=== PATIENT | female | born 1955 | race Native Hawaiian/Other Pacific Islander ===

== ENCOUNTER 2017-01-31 21:47 | Emergency (ER) | payer BC, OTHER ==
[~2017-01-31] VITALS: Ht 157.5 cm; Wt 70.3 kg
[2017-01-31] MEDS ORDERED: ATORVASTATIN 10 MG TABLET (22:50)
[2017-01-31] MEDS ORDERED: METO25TA3 (22:50)
[2017-01-31] MEDS ORDERED: MAG HYDROX/AL HYDROX/SIMETH 30 ML LIQUID UDC PO ONE (23:00)
[2017-01-31] MEDS ORDERED: PANTOPRAZOLE SODIUM 40 MG TABLET.DR PO ONE ×2 (23:00→23:07)
[2017-01-31] MEDS ORDERED: DICYCLOMINE HCL 10 MG/5 ML UDC LIQ PO ONE (23:00)
--- NOTE | 2017-01-31 23:00 | NUR ---
Patient walked into ER C/O burning/pain on abdominal area. Patient states pain started at 1900 today. Ptaient took mylanta and zantac but not effective
[2017-01-31] MEDS ORDERED: MAG HYDROX/AL HYDROX/SIMETH 30 ML LIQUID UDC ONE (23:07)
[2017-01-31] MEDS ORDERED: DICYCLOMINE HCL 10 MG/5 ML UDC LIQ ONE (23:07)
--- NOTE | 2017-01-31 23:20 | NUR ---
Dr Hoskins into re eval patient. Patient states "I feel alot better now."
--- NOTE | 2017-01-31 23:30 | NUR ---
Patient discharged to home in stable conditon with family taking patient home. Written and verbal after care instructions given. Patient verbalizes understanding of instructions. Walked out of ER with steady gait. no distress noted
[2017-01-31 23:31] VITALS: BP 150/100
== END 2017-01-31 23:31 | disposition home or self-care (01) ==
LOC: ER 21:47
DX: K21.0 Gastro-esophageal reflux disease with esophagitis (principal); G43.901 Migraine, unspecified, not intractable, with status migrainosus
CPT/HCPCS: A4663

== ENCOUNTER 2017-05-20 10:50 | Outpatient (CLI) | payer BC, OTHER ==
[~2017-05-20 10:50] MED LIST: ATORVASTATIN 10 MG TABLET; METO25TA3
[2017-05-20 11:47] LABS: BASOPHILS % (AUTO) 0.6 % (0.0-2.0); EOSINOPHILS # (AUTO) 0.1 K/uL (0.0-0.7); EOSINOPHILS % (AUTO) 1.5 % (0.0-7.0); HEMATOCRIT 40.1 % (37-47); HEMOGLOBIN 13.2 G/DL (12.0-16.0); LYMPHOCYTES # (AUTO) 2.3 K/UL (0.8-4.8); LYMPHOCYTES % (AUTO) 30.9 % (20.5-51.5); MEAN CORPUSCULAR HEMOGLOBIN 29.9 UUG (27.0-31.0); MEAN CORPUSCULAR HGB CONC 33 g/dL (32.0-37.0); MEAN CORPUSCULAR VOLUME 91.2 FL (81.0-99.0); MONOCYTES # (AUTO) 0.4 K/UL (0.1-1.30); MONOCYTES % (AUTO) 4.9 % (0.0-11.0); NEUTROPHILS # (AUTO) 4.8 K/UL (1.8-8.9); NEUTROPHILS % (AUTO) 62.1 % (38.5-71.5); PLATELET COUNT (AUTO) 322 K/UL (150-450); WHITE BLOOD COUNT (AUTO) 7.6 K/UL (4.0-11.2)
[2017-05-20 12:19] LABS: BILIRUBIN,TOTAL 0.7 mg/dL (0.2-1.0); CREATININE 0.6 mg/dL (0.6-1.3); POTASSIUM 3.8 mmol/L (3.5-5.1); TOTAL PROTEIN, SERUM 8.5 g/dL (6.4-8.2)
== END 2017-05-20 23:59 | disposition home or self-care (01) ==
LOC: LAB 10:50
PROVIDERS: ATTEND Internal Medicine Cardiovascular Disease
DX: I10 Essential (primary) hypertension (principal); E11.9 Type 2 diabetes mellitus without complications; R53.83 Other fatigue; E78.5 Hyperlipidemia, unspecified
CPT/HCPCS: 36415; 85025

== ENCOUNTER 2018-01-28 10:02 | Outpatient (CLI) | payer BC, OTHER ==
[2018-01-28 11:04] LABS: BILIRUBIN,TOTAL 0.4 mg/dL (0.2-1.0); CREATININE 0.7 mg/dL (0.6-1.3); POTASSIUM 3.8 mmol/L (3.5-5.1); TOTAL PROTEIN, SERUM 8.3 g/dL (6.4-8.2)
== END 2018-01-28 23:59 | disposition home or self-care (01) ==
LOC: LAB 10:02
PROVIDERS: ATTEND Internal Medicine Cardiovascular Disease
DX: I10 Essential (primary) hypertension (principal); E11.9 Type 2 diabetes mellitus without complications; E78.5 Hyperlipidemia, unspecified
CPT/HCPCS: 36415

== ENCOUNTER 2018-09-18 08:53 | Outpatient (CLI) | END 2018-09-18 23:59 | disposition home or self-care (01) | DX: E78.5 Hyperlipidemia, unspecified (principal); E11.9 Type 2 diabetes mellitus without complications; I10 Essential (primary) hypertension ==

== ENCOUNTER 2018-12-15 16:36 | Emergency (ER) | payer BC, OTHER ==
[~2018-12-15] VITALS: Ht 157.5 cm; Wt 70.3 kg
--- NOTE | 2018-12-15 16:51 | NUR ---
DR Foreman seen and examined the pt.
--- NOTE | 2018-12-15 17:51 | NUR ---
Patient discharged to home in stable conditon. Written and verbal after care instructions given. Patient verbalizes understanding of instructions.
[2018-12-15 17:52] VITALS: BP 165/84
== END 2018-12-15 17:52 | disposition home or self-care (01) ==
LOC: ER 16:39
DX: S93.401A Sprain of unspecified ligament of right ankle, initial encounter (principal); Z79.899 Other long term (current) drug therapy; X50.0XXA Overexertion from strenuous movement or load, initial encounter; Y93.89 Activity, other specified; Y92.89 Other specified places as the place of occurrence of the external cause; Y99.8 Other external cause status
CPT/HCPCS: 73610; A4663

== ENCOUNTER 2019-04-14 07:45 | Outpatient (CLI) | payer BC, OTHER ==
[2019-04-14 08:58] LABS: BILIRUBIN,TOTAL 0.4 mg/dL (0.2-1.0); CREATININE 0.7 mg/dL (0.6-1.3); POTASSIUM 3.8 mmol/L (3.5-5.1); TOTAL PROTEIN, SERUM 8.1 g/dL (6.4-8.2)
[2019-04-14 09:03] LABS: THYROID STIMULATING HORMONE 2.876 mIU/mL (0.358-3.740)
== END 2019-04-14 23:59 | disposition home or self-care (01) ==
LOC: LAB 07:45
PROVIDERS: ATTEND Internal Medicine Cardiovascular Disease
DX: E11.9 Type 2 diabetes mellitus without complications (principal); I10 Essential (primary) hypertension; E78.5 Hyperlipidemia, unspecified; R53.83 Other fatigue
CPT/HCPCS: 36415; 84443

== ENCOUNTER 2019-11-24 10:04 | Outpatient (CLI) | payer BC, OTHER ==
[2019-11-24 10:39] LABS: BASOPHILS % (AUTO) 0.6 % (0.0-2.0); EOSINOPHILS % (AUTO) 0.5 % (0.0-7.0); HEMATOCRIT 40.1 % (31.2-41.9); HEMOGLOBIN 13.3 g/dL (10.9-14.3); LYMPHOCYTES # (AUTO) 1.8 K/uL (20.0-40.0); LYMPHOCYTES % (AUTO) 23.4 % (20.5-51.5); MEAN CORPUSCULAR HEMOGLOBIN 30.6 uug (24.7-32.8); MEAN CORPUSCULAR HGB CONC 33 g/dL (32.3-35.6); MONOCYTES # (AUTO) 0.3 K/uL (2.0-10.0); MONOCYTES % (AUTO) 4.4 % (0.0-11.0); NEUTROPHILS # (AUTO) 5.4 K/uL (1.8-8.9); NEUTROPHILS % (AUTO) 71.1 % (38.5-71.5); PLATELET COUNT (AUTO) 327 K/uL (179-408); RED BLOOD CELL COUNT(AUTO) 4.35 MIL/uL (3.63-4.92); WHITE BLOOD COUNT (AUTO) 7.7 K/uL (3.8-11.8)
[2019-11-24 11:04] LABS: BILIRUBIN,TOTAL 0.4 mg/dL (0.2-1.0); CREATININE 0.7 mg/dL (0.6-1.3); POTASSIUM 3.3 mmol/L (3.5-5.1); THYROID STIMULATING HORMONE 1.681 mIU/mL (0.358-3.740); TOTAL PROTEIN, SERUM 8.7 g/dL (6.4-8.2)
[2019-11-24 11:30] LABS: *BILIRUBIN,URIN NEGATIVE (NEGATIVE); *BLOOD, URINE NEGATIVE (NEGATIVE); *CLARITY,URINE CLEAR (CLEAR); *COLOR,URINE YELLOW (YELLOW); *KETONES,URINE NEGATIVE (NEGATIVE); *UROBILINOGEN,URINE 0.2 E.U./dl (NORMAL); LEUKOCYTE ESTERASE ,URINE 2+ (NEGATIVE); NITRITE, URINE NEGATIVE (NEGATIVE); PH,URINE 6.5 (5.0-8.0); UGLUCOSE NEGATIVE (NEGATIVE)
[2019-11-24 11:44] LABS: URIC ACID 6.6 mg/dL (2.6-6.0)
[2019-11-24 12:02] LABS: BACTERIA,URINE FEW /HPF (NONE SEEN); RBC,URINE 0-3 /HPF (0-3); SQUAMOUS EPITHELIAL CELL,UR FEW /HPF (NONE SEEN); WBC,URINE 0-3 /HPF (0-3)
== END 2019-11-24 23:59 | disposition home or self-care (01) ==
LOC: LAB 10:04
PROVIDERS: ATTEND Legal Medicine
DX: Z00.00 Encounter for general adult medical examination without abnormal findings (principal); I10 Essential (primary) hypertension; E11.9 Type 2 diabetes mellitus without complications; E78.00 Pure hypercholesterolemia, unspecified; E03.9 Hypothyroidism, unspecified; E55.9 Vitamin D deficiency, unspecified
CPT/HCPCS: 36415; 82306; 83550; 84443; 84550; 85025; 87086

== ENCOUNTER 2020-07-17 10:23 | Outpatient (CLI) | payer BC, OTHER ==
[2020-07-17 10:51] LABS: BASOPHILS % (AUTO) 0.7 % (0.0-2.0); EOSINOPHILS # (AUTO) 0.1 K/uL (0.0-0.7); EOSINOPHILS % (AUTO) 0.8 % (0.0-7.0); HEMATOCRIT 37.8 % (31.2-41.9); HEMOGLOBIN 12.9 g/dL (10.9-14.3); LYMPHOCYTES # (AUTO) 2.3 K/uL (20.0-40.0); LYMPHOCYTES % (AUTO) 31.8 % (20.5-51.5); MEAN CORPUSCULAR HEMOGLOBIN 31.2 uug (24.7-32.8); MEAN CORPUSCULAR HGB CONC 34 g/dL (32.3-35.6); MEAN CORPUSCULAR VOLUME 91.7 fL (75.5-95.3); MONOCYTES # (AUTO) 0.4 K/uL (2.0-10.0); MONOCYTES % (AUTO) 5.5 % (0.0-11.0); NEUTROPHILS # (AUTO) 4.4 K/uL (1.8-8.9); NEUTROPHILS % (AUTO) 61.2 % (38.5-71.5); PLATELET COUNT (AUTO) 311 K/uL (179-408); RED BLOOD CELL COUNT(AUTO) 4.12 MIL/uL (3.63-4.92); WHITE BLOOD COUNT (AUTO) 7.1 K/uL (3.8-11.8)
[2020-07-17 11:03] LABS: BILIRUBIN,TOTAL 0.2 mg/dL (0.2-1.0); CREATININE 0.8 mg/dL (0.6-1.3); POTASSIUM 3.6 mmol/L (3.5-5.1); TOTAL PROTEIN, SERUM 8.3 g/dL (6.4-8.2)
[2020-07-17 14:42] LABS: *BILIRUBIN,URIN NEGATIVE (NEGATIVE); *BLOOD, URINE NEGATIVE (NEGATIVE); *CLARITY,URINE CLEAR (CLEAR); *COLOR,URINE YELLOW (YELLOW); *KETONES,URINE NEGATIVE (NEGATIVE); *UROBILINOGEN,URINE 0.2 E.U./dl (NORMAL); LEUKOCYTE ESTERASE ,URINE 1+ (NEGATIVE); NITRITE, URINE NEGATIVE (NEGATIVE); UGLUCOSE NEGATIVE (NEGATIVE)
[2020-07-17 18:44] LABS: BACTERIA,URINE FEW /HPF (NONE SEEN); RBC,URINE 0-3 /HPF (0-3); SQUAMOUS EPITHELIAL CELL,UR FEW /HPF (NONE SEEN)
== END 2020-07-17 23:59 | disposition home or self-care (01) ==
LOC: LAB 10:23
PROVIDERS: ATTEND Legal Medicine
DX: Z01.818 Encounter for other preprocedural examination (principal); E04.1 Nontoxic single thyroid nodule; I10 Essential (primary) hypertension; E78.00 Pure hypercholesterolemia, unspecified; E55.9 Vitamin D deficiency, unspecified; D68.59 Other primary thrombophilia
CPT/HCPCS: 36415; 71046; 85025; 85610; 85730; 87086

== ENCOUNTER 2020-07-22 06:33 | Outpatient (CLI) | payer BC, OTHER | END 2020-07-22 23:59 | disposition home or self-care (01) | LOC: LAB 06:33 | PROVIDERS: ATTEND Otolaryngology | DX: Z01.812 Encounter for preprocedural laboratory examination (principal); Z20.828 Contact with and (suspected) exposure to other viral communicable diseases ==

== ENCOUNTER 2020-07-24 09:10 | Inpatient (IN) | payer BC, OTHER ==
[2020-07-24] MEDS ORDERED: LIDOCAINE 1%-EPI 1:100,000 20 ML VIAL ONE (09:28)
[2020-07-24] MEDS ORDERED: HYDROMORPHONE 2 MG/1 ML DISP.SYRIN ONE (10:33)
[2020-07-24] MEDS ORDERED: ROCURONIUM BROMIDE 50 MG/5 ML VIAL ONE (10:33)
[2020-07-24] MEDS ORDERED: DEXAMETHASONE SOD PHOSPHATE 4 MG INJ IV ONE (12:38)
[2020-07-24] MEDS ORDERED: PROPOFOL 200 MG/20 ML BOTTLE IV ONE (12:38)
[2020-07-24] MEDS ORDERED: IV LACTATED RINGERS SOLUTION 1,000 ML BAG IV ONE (12:38)
[2020-07-24] MEDS ORDERED: METOCLOPRAMIDE HCL 10 MG/2 ML VIAL IV ONE (12:38)
[2020-07-24] MEDS ORDERED: LIDOCAINE-MPF 2% 5 ML VIAL IJ ONE (12:38)
[2020-07-24] MEDS ORDERED: NEOSTIGMINE METHYLSULFATE 10 MG/10 ML VIAL IM ONE (12:38)
[2020-07-24] MEDS ORDERED: hydrALAZINE HCL 20 MG/1 ML VIAL IM ONE (12:38)
[2020-07-24] MEDS ORDERED: CEFAZOLIN 1 G VIAL IM ONE (12:38)
[2020-07-24] MEDS ORDERED: ONDANSETRON 4 MG/2 ML VIAL IV ONE (12:38)
[2020-07-24] MEDS ORDERED: GLYCOPYRROLATE 0.2 MG/ML VIAL IJ ONE (12:38)
[2020-07-24] MEDS ORDERED: SEVOFLURANE 250 ML BOTTLE IH ONE (12:38)
[2020-07-24] MEDS ORDERED: ONDANSETRON 4 MG/2 ML VIAL ONE (13:28)
[2020-07-24] MEDS ORDERED: hydrALAZINE HCL 20 MG/1 ML VIAL ONE (13:28)
[2020-07-24] MEDS ORDERED: FENTANYL CITRATE 100 MCG/2 ML AMPUL ONE (13:34)
[2020-07-24] MEDS ORDERED: HYDROCODONE/APAP 5-325MG TABLET ONE (14:37)
[2020-07-24] MEDS ORDERED: MECLIZINE HCL 25 MG TABLET PO ONE (16:30)
[2020-07-24] MEDS ORDERED: DOCUSATE SODIUM 250 MG CAPSULE PO PRN (18:45)
[2020-07-24] MEDS ORDERED: ONDANSETRON 4 MG/2 ML VIAL IV PRN (18:45)
[2020-07-24] MEDS ORDERED: HYDROCODONE/APAP 5-325MG TABLET PO PRN (18:45)
[2020-07-24] MEDS ORDERED: MORPHINE SULFATE 2 MG/1 ML DISP.SYRIN IV PRN (18:45)
--- NOTE | 2020-07-24 19:00 | NUR ---
RECEIVED PT VIA GURNEY FROM PACU. PT IN NO ACUTE RESPIRATORY DISTRESS. PT AWAKE, ALERT AND ORIENTEDX4. PT FEEL DIZZY. SAFETY AND COMFORT PROVIDED. PT INCISIONAL DRESSING DRY AND INTACT. NO SWELLING ON PT NECK. ENDORSED BY KAREN NICOLE RN.ADMISSION PROCESS AND CARE PLAN INITIATED. SAFETY AND COMFORT PROVIDED. INCENTIVE SPIROMETER PROVIDE.WILL CONTINUE TO MONITOR .
--- NOTE | 2020-07-24 20:00 | NUR ---
Received patient alert, awake, and with VSS. Patient reports pain in her neck post op. Patient also reports Nausea and Vomiting. Patient was admitted to Med Surg in room 310. Will continue to monitor and assess Patient.
[2020-07-24 20:04] VITALS: BP 144/68
--- NOTE | 2020-07-24 20:09 | NUR ---
PT REFUSED ANTIVERT MEDICATION. PT REQUEST ZOFRAN INSTEAD SINCE ANTIVERT WAS GIVEN IN RECOVERY ROOM. PT FEEL DIZZY AND HAS HEADACHE. PT GIVEN ZOFRAN FIRST. NORCO WILL BE GIVEN AFTER THE ZOFRAN WORKS.
[2020-07-24] MEDS ORDERED: ATORVASTATIN 10 MG TABLET PO SCH (21:00)
--- NOTE | 2020-07-24 21:42 | NUR ---
Patient initially requested that Zofran be given first and if needed she will ask for Dupont. Both were given. Will continue to monitor and assess patient to achieve optimal care.
--- NOTE | 2020-07-25 02:28 | NUR ---
Dr.Dmitriy Sandoval ordered tylenol 650mg tablet . Pt doesn't want norco for pain.
[2020-07-25] MEDS: ACETAMINOPHEN 325 MG TABLET PO PRN ×2 (02:29→09:03)
--- NOTE | 2020-07-25 02:29 | NUR ---
TYLENOL 650 MG GIVEN TO THE PT FOR HEADACHE AND PAIN. PT TOLERATED IT WELL.
[2020-07-25 04:04] VITALS: BP 112/50
--- NOTE | 2020-07-25 06:26 | NUR ---
NORCO GIVEN AT 2123H FOR PAIN . PT TOLERATED IT WELL AFTER AN HOUR PT STATED SHE FELT BETTER. PT SLEPT INTERMITTENTLY. PT IN NO ACUTE RESPIRATORY DISTRESS. IV INTACT. DRESSING INTACT WITH A TINY BLOOD STAIN IN THE DRESSING. NO SWELLING ON PT NECK. SAFETY AND COMFORT PROVIDED. ALL NEEDS ARE MET. WILL ENDORSE TO INCOMING NURSE FOR CONTINUITY OF CARE.
[2020-07-25] MEDS ORDERED: METOPROLOL SUCCINATE XL 25 MG TAB.SR.24H PO SCH (09:00)
--- NOTE | 2020-07-25 10:20 | NUR ---
Pt received, resting in bed, states feeling better than before but still c/o headache. Tylenol administered per PRN orders. Pt compliant with routine medications. BP 161/76, 78. Pt seen by MD, new order received to assess orthostatic BP, will follow up accordingly. Plan of care discussed including potential D/C later today. All comfort and safety measures implemented. Call light placed within reach. Will continue to monitor and follow up.
[2020-07-25] MEDS ORDERED: ONDA4TAB5 PO (10:50)
[2020-07-25 11:00] VITALS: BP_SYST 128; BP_SYST 133; BP_DIAS 65; BP_DIAS 66
--- NOTE | 2020-07-25 17:21 | NUR ---
Discharge order received, paperwork completed, reviewed, and signed. Original paperwork given to Pt and copies placed in chart. Medications discussed with Pt and script provided. All discharge concerns addressed. ID band and IV removed. Belongings accounted for. Original surgical dressing remains intact as ordered. No wound photos to take. Pt assisted in wheelchair to private car with Son driving. Will remove Pt from system shortly.
== END 2020-07-25 17:15 | disposition home or self-care (01) | DRG 627 ==
LOC: DS 09:10 → MEDSURG3 19:02
PROVIDERS: ADMIT Registered Nurse; ATTEND Otolaryngology
PROC: 0GTH0ZZ Resection of Right Thyroid Gland Lobe, Open Approach (ICD-10-PCS; principal; 2020-07-24)
DX: E04.1 Nontoxic single thyroid nodule (principal); G89.18 Other acute postprocedural pain; E78.5 Hyperlipidemia, unspecified; I10 Essential (primary) hypertension
CPT/HCPCS: A4649; A4663; G0378; J0360; J0690; J1100; J1170; J2405; J2765; J3010; J3490; J7120; J8597

== ENCOUNTER 2020-08-29 09:05 | Outpatient (CLI) | payer BC, OTHER ==
[~2020-08-29 09:05] MED LIST changes: +ONDA4TAB5 PO
[2020-08-29 10:29] LABS: BASOPHILS # (AUTO) 0.1 K/uL (0.0-8.0); BASOPHILS % (AUTO) 0.8 % (0.0-2.0); EOSINOPHILS # (AUTO) 0.1 K/uL (0.0-0.7); EOSINOPHILS % (AUTO) 1.1 % (0.0-7.0); HEMATOCRIT 40.1 % (31.2-41.9); HEMOGLOBIN 13.3 g/dL (10.9-14.3); LYMPHOCYTES % (AUTO) 28.3 % (20.5-51.5); MEAN CORPUSCULAR HEMOGLOBIN 30.9 uug (24.7-32.8); MEAN CORPUSCULAR HGB CONC 33 g/dL (32.3-35.6); MEAN CORPUSCULAR VOLUME 93.1 fL (75.5-95.3); MONOCYTES # (AUTO) 0.5 K/uL (2.0-10.0); NEUTROPHILS # (AUTO) 6.8 K/uL (1.8-8.9); NEUTROPHILS % (AUTO) 64.8 % (38.5-71.5); PLATELET COUNT (AUTO) 317 K/uL (179-408); RED BLOOD CELL COUNT(AUTO) 4.31 MIL/uL (3.63-4.92); WHITE BLOOD COUNT (AUTO) 10.5 K/uL (3.8-11.8)
[2020-08-29 10:42] LABS: BILIRUBIN,TOTAL 0.5 mg/dL (0.2-1.0); CREATININE 0.9 mg/dL (0.6-1.3); POTASSIUM 3.4 mmol/L (3.5-5.1); TOTAL PROTEIN, SERUM 8.7 g/dL (6.4-8.2)
[2020-08-29 11:15] LABS: THYROID STIMULATING HORMONE 6.011 mIU/mL (0.358-3.740)
[2020-08-30 08:56] LABS: TRIIODOTHYRONINE, FREE 2.9 pg/mL (2.0-4.4)
[2020-08-30 14:43] LABS: CALCIUM, IONIZED 5.1 mg/dL (4.5-5.6)
== END 2020-08-29 23:59 | disposition home or self-care (01) ==
LOC: LAB 09:05 → EDSTATUS 09:05 → LAB 23:59
PROVIDERS: ATTEND Legal Medicine
DX: E11.9 Type 2 diabetes mellitus without complications (principal); E03.9 Hypothyroidism, unspecified
CPT/HCPCS: 36415; 82330; 83970; 84443; 84481; 85025

== ENCOUNTER → 2020-12-06 | Outpatient (CLI) | payer BC, OTHER | END | disposition home or self-care (01) | LOC: LAB 09:51 | PROVIDERS: ATTEND Legal Medicine | DX: E03.9 Hypothyroidism, unspecified (principal) | CPT/HCPCS: 36415; 70030-TC; 84443; 84481 ==

== ENCOUNTER 2021-01-22 11:01 | Emergency (ER) | payer BC, OTHER ==
[~2021-01-22] VITALS: Ht 152.4 cm; Wt 77.1 kg
[2021-01-22] MEDS ORDERED: CYCLOBENZAPRINE HCL 10 MG TABLET PO ONE (11:45)
[2021-01-22] MEDS ORDERED: CYCLOBENZAPRINE HCL 10 MG TABLET ONE (11:53)
[2021-01-22] MEDS ORDERED: ACETAMINOPHEN ES 500 MG TABLET PO ONE (12:00)
[2021-01-22] MEDS ORDERED: ACETAMINOPHEN ES 500 MG TABLET ONE (12:05)
[2021-01-22] MEDS ORDERED: ACET-2605 PO (12:56)
[2021-01-22] MEDS ORDERED: CYCL10TA9 PO (12:56)
--- NOTE | 2021-01-22 13:11 | NUR ---
Patient discharged to home in stable condition. Written and verbal after care instructions given. Patient verbalizes understanding of instructions. Stressed follow up or return to ER for worsening s/s. Steady gait. All belongings with patient.
[2021-01-22 13:12] VITALS: BP 140/83
== END 2021-01-22 13:12 | disposition home or self-care (01) ==
LOC: ER 11:01
DX: M75.31 Calcific tendinitis of right shoulder (principal); Z79.899 Other long term (current) drug therapy; Z86.69 Personal history of other diseases of the nervous system and sense organs
CPT/HCPCS: 73030; A4663; A9150

== ENCOUNTER 2021-07-01 11:00 | Outpatient (CLI) | payer BC, OTHER ==
[~2021-07-01 11:00] MED LIST changes: +ACET-2605 PO; +CYCL10TA9 PO
[2021-07-01 11:21] LABS: HEMATOCRIT 38.5 % (31.2-41.9); MEAN CORPUSCULAR HEMOGLOBIN 31.6 uug (24.7-32.8); MEAN CORPUSCULAR VOLUME 93.1 fL (75.5-95.3); PLATELET COUNT (AUTO) 305 K/uL (179-408)
[2021-07-01 11:37] LABS: BILIRUBIN,TOTAL 0.6 mg/dL (0.2-1.0); CREATININE 0.7 mg/dL (0.6-1.3); POTASSIUM 3.6 mmol/L (3.5-5.1); TOTAL PROTEIN, SERUM 8.4 g/dL (6.4-8.2)
[2021-07-01 11:41] LABS: THYROID STIMULATING HORMONE 5.014 mIU/mL (0.358-3.740)
== END 2021-07-01 23:59 | disposition home or self-care (01) ==
LOC: LAB 11:00
PROVIDERS: ATTEND Legal Medicine
DX: I10 Essential (primary) hypertension (principal); E11.9 Type 2 diabetes mellitus without complications; E78.5 Hyperlipidemia, unspecified
CPT/HCPCS: 36415; 84443; 85025

== ENCOUNTER 2021-07-07 14:32 | Outpatient (CLI) | payer BC, OTHER | END 2021-07-07 23:59 | disposition home or self-care (01) | LOC: LAB 14:32 | PROVIDERS: ATTEND Internal Medicine Interventional Cardiology | DX: E03.9 Hypothyroidism, unspecified (principal) | CPT/HCPCS: 36415; 70030-TC; 84443 ==

== ENCOUNTER 2022-07-27 16:18 | Emergency (ER) | payer BC, OTHER ==
[~2022-07-27] VITALS: Ht 157.5 cm; Wt 77.1 kg
--- NOTE | 2022-07-27 17:05 | NUR ---
Patient walked-in to the ER, noted with cough/congestion, elevated temp, and with bodyache to the upper extremities. Seen by MD, orders carried out.
[2022-07-27] MEDS ORDERED: ACETAMINOPHEN ES 500 MG TABLET ONE ×2 (18:20→18:21)
[2022-07-27] MEDS ORDERED: ACETAMINOPHEN ES 500 MG TABLET PO ONE (18:30)
[2022-07-27] MEDS ORDERED: PSEU120T57 PO (18:39)
[2022-07-27 19:02] VITALS: BP 148/69
--- NOTE | 2022-07-27 19:03 | NUR ---
Patient discharged to home in stable condition. Written and verbal after care instructions given. Patient verbalizes understanding of instructions. Rx given. Stressed follow up or return to ER for worsening s/s.
== END 2022-07-27 19:07 | disposition home or self-care (01) ==
LOC: ER 16:22
DX: U07.1 COVID-19 (principal); J06.9 Acute upper respiratory infection, unspecified
CPT/HCPCS: 99284; 71045; 87400; 36415; U0003; C9803; A4663; A9150

== ENCOUNTER 2025-09-05 10:18 | Emergency (ER) | payer BC, OTHER ==
[~2025-09-05] VITALS: Ht 154.9 cm; Wt 77.1 kg
[~2025-09-05 10:18] MED LIST changes: +CYCL10TA24 PO; -CYCL10TA9 PO; +PSEU120T57 PO
[2025-09-05 10:23] VITALS: BP 190/84
[2025-09-05] MEDS ORDERED: LOSA25TA27 PO (10:35)
[2025-09-05] MEDS ORDERED: METO-356 PO (10:35)
[2025-09-05 11:21] LABS: PLATELET COUNT (AUTO) 290 K/uL (179-408); RED BLOOD CELL COUNT(AUTO) 4.28 MIL/uL (3.63-4.92); RED CELL DISTRIBUTION WIDTH 13.1 % (12.3-17.7); WHITE BLOOD COUNT (AUTO) 7.5 K/uL (3.8-11.8)
[2025-09-05 11:24] LABS: CREATININE 0.6 mg/dL (0.6-1.3); SODIUM SERUM 140 mmol/L (136-145); UREA NITROGEN, BLOOD 19 mg/dL (7-18)
[2025-09-05 11:27] LABS: ERYTHROCYTE SEDIMENTATION RATE 37 MM/HR (0-20)
[2025-09-05] MEDS ORDERED: ACETAMINOPHEN 500 MG TABLET ONE (11:31)
[2025-09-05] MEDS: ACETAMINOPHEN 500 MG TABLET PO ONE (11:35)
[2025-09-05 12:43] VITALS: BP 161/77; O2SAT 99
== END 2025-09-05 11:50 | disposition home or self-care (01) ==
LOC: ER 11:09
DX: G44.209 Tension-type headache, unspecified, not intractable (principal); I11.9 Hypertensive heart disease without heart failure; E78.5 Hyperlipidemia, unspecified; Z79.899 Other long term (current) drug therapy; Z88.7 Allergy status to serum and vaccine
CPT/HCPCS: 36415; 70450; 85025; 85651; 86140; A4606; A4663; A9150